=== PATIENT | female | born 1960 | race Caucasian/White ===

== ENCOUNTER 2018-12-09 00:42 | Emergency (ER) | payer OTHER ==
[~2018-12-09] VITALS: Ht 167.6 cm; Wt 65.8 kg
[~2018-12-09 00:42] MED LIST: ALBIPROI INH; ALBU90OI INH; ALBU90OI6 INH; ALBU90OI61 INH; AMOX500 PO; BUDE10.22 IH; CALCA500CH PO; CLIN150; COMBIVENT RESPIM4 GM IH; CYCL10 PO; Cleocin HCl300 MG PO; DIAZ5 PO; DIPH50 PO; ENDOCET PO; FLUSAL2505 IH; HYDACE5 PO; HYDACE7.5; Hydrocodone-Ap1 EA20 PO; INDO25 PO; LORA.5 PO; METH10 PO; METPRE4DP PO; Mucinex600 MG PO; ONDA4ODT MM; OXYACE5T PO; OXYC10TA19 PO; OXYC15ER PO; PREG50 PO; Percocet 5-3251 EACH PO; Prednisone20 MG PO; RXONDA4ODT MM; TIOT18 IH; VICODIN HP 10-1 EACH PO; Ventolin Soln3 ML INH; Zithromax250 MG PO
[2018-12-09] MEDS ORDERED: LEVSOD50 PO (00:50)
[2018-12-09] MEDS ORDERED: AMIT10 PO ×2 (00:50→01:00)
== END 2018-12-09 01:42 | disposition home or self-care (01) ==
LOC: ER 00:42
DX: F41.9 Anxiety disorder, unspecified (principal); F31.9 Bipolar disorder, unspecified; F90.9 Attention-deficit hyperactivity disorder, unspecified type; F17.210 Nicotine dependence, cigarettes, uncomplicated; J44.9 Chronic obstructive pulmonary disease, unspecified; Z88.0 Allergy status to penicillin; Z88.1 Allergy status to other antibiotic agents; Z91.09 Other allergy status, other than to drugs and biological substances; Z79.899 Other long term (current) drug therapy
CPT/HCPCS: 99283

== ENCOUNTER 2019-01-29 21:31 | Emergency (ER) | payer OTHER ==
[~2019-01-29] VITALS: Ht 167.6 cm; Wt 61.2 kg
[~2019-01-29 21:31] MED LIST changes: +AMIT10 PO; +LEVSOD50 PO
[2019-01-30 00:10] LABS: Source, Urine Clean Catch
[2019-01-30 00:27] LABS: Blood, Urine 5+ (Neg); Glucose Qualitative, Urine Neg (Neg); Ketones, Urine 2+ (Neg); Leukocyte Esterase, Urine 3+ (Neg); Nitrite, Urine Pos (Neg); Protein, Urine 4+ (Neg); Urobilinogen, Urine 2+ (Normal)
[2019-01-30 00:29] LABS: Appearance, Urine Cloudy (Clear); Bilirubin, Urine 1+ (Neg); Color, Urine Amber (P-Yellow)
[2019-01-30 00:30] LABS: Amorphous Light (0-Heavy); Bacteria Many /hpf; Red Blood Cells, Urine TNTC /hpf (0-2); Squamous Epithelial Cells Rare /hpf (Few); Transitional Epithelial Cells Few /hpf (0-Rare); White Blood Cells, Urine TNTC /hpf (0-5)
[2019-01-30] MEDS ORDERED: CEPH500 PO (00:58)
[2019-01-30] MEDS ORDERED: IBUP600 PO (00:58)
[2019-01-30] MEDS ORDERED: Pyridium100 MG PO (00:58)
== END 2019-01-30 01:22 | disposition home or self-care (01) ==
LOC: ER 21:31
PROVIDERS: Emergency Medicine
DX: N30.90 Cystitis, unspecified without hematuria (principal); G43.909 Migraine, unspecified, not intractable, without status migrainosus; J44.9 Chronic obstructive pulmonary disease, unspecified; F31.9 Bipolar disorder, unspecified; F17.210 Nicotine dependence, cigarettes, uncomplicated; Z88.0 Allergy status to penicillin; Z88.2 Allergy status to sulfonamides; Z91.041 Radiographic dye allergy status; Z79.899 Other long term (current) drug therapy
CPT/HCPCS: 81001; 87077; 87086; 87186; 99284

== ENCOUNTER 2019-02-23 09:13 | Observation (INO) | payer OTHER ==
[~2019-02-23] VITALS: Ht 175.3 cm; Wt 72.6 kg
[~2019-02-23 09:13] MED LIST changes: +CEPH500 PO; +IBUP600 PO; +Pyridium100 MG PO
[2019-02-23 10:06] LABS: BASOPHILS ABSOLUTE AUTO 0.04 K/mm3 (0.00-0.23); BASOPHILS PERCENT AUTO 1 % (0-2); EOSINOPHILS ABSOLUTE AUTO 0.06 K/mm3 (0.00-0.68); EOSINOPHILS PERCENT AUTO 1 % (0-6); Hematocrit 46.7 % (33.0-51.0); Hemoglobin 15.2 g/dL (11.5-16.0); IMMATURE GRAN ABSOLUTE AUTO 0.01 K/mm3 (0.00-0.10); IMMATURE GRAN PERCENT AUTO 0 % (0-1); LYMPHOCYTES ABSOLUTE AUTO 1.54 K/mm3 (0.84-5.20); LYMPHOCYTES PERCENT AUTO 23 % (21-46); MONOCYTES PERCENT AUTO 9 % (4-13); Mean Corpuscular HGB 28.4 pg (26.0-34.0); Mean Corpuscular HGB Conc 32.5 g/dL (31.5-36.5); Mean Corpuscular Volume 87 fL (80-100); Mean Platelet Volume 9.2 fL (9.1-12.4); NEUTROPHILS ABSOLUTE AUTO 4.38 K/mm3 (1.96-9.15); NEUTROPHILS PERCENT AUTO 66 % (41-73); Platelet Count 290 K/mm3 (150-400); RDW Coefficient Variation 12.4 % (11.7-14.2); RDW Standard Deviation 39.4 fL (35.1-46.3); Red Blood Cell Count 5.36 M/mm3 (3.80-5.20); White Blood Cell Count 6.63 K/mm3 (4.00-11.30)
[2019-02-23 10:13] LABS: Source, Urine Clean Catch
[2019-02-23 10:16] LABS: Blood, Urine 4+ (Neg); Glucose Qualitative, Urine Neg (Neg); Ketones, Urine 4+ (Neg); Leukocyte Esterase, Urine 1+ (Neg); Nitrite, Urine Neg (Neg); Protein, Urine 3+ (Neg); Specific Gravity, Urine 1.025 (1.003-1.022); Urobilinogen, Urine 2+ (Normal)
[2019-02-23 10:28] LABS: Alanine Aminotransfer (ALT/SGP 28 U/L (12-78); Albumin/Globulin Ratio 0.9 (0.8-1.8); Alk Phos 93 U/L (50-136); Anion Gap 12 mmol/L (6-16); Aspartate Aminotrans (AST/SGOT 32 U/L (12-37); Bilirubin, Total 0.7 mg/dL (0.1-1.0); Blood Urea Nitrogen 18 mg/dL (8-24); Bun/Creatinine Ratio 27.4 (12.0-20.0); CO2, Blood 26 mmol/L (21-32); Calcium, Blood 10.9 mg/dL (8.5-10.1); Chloride, Blood 100 mmol/L (98-108); Creatinine, Blood 0.66 mg/dL (0.40-1.00); Globulin, Blood 4.5 g/dL (2.2-4.0); Glomerular Filtration Rate >60 (60-); Glucose, Blood 87 mg/dL (70-99); Potassium, Blood 3.3 mmol/L (3.5-5.5); Sodium, Blood 138 mmol/L (136-145); Total Protein, Blood 8.5 g/dL (6.4-8.2)
[2019-02-23 10:35] LABS: Appearance, Urine Hazy (Clear); Bilirubin, Urine 2+ (Neg); Color, Urine Yellow (P-Yellow)
[2019-02-23 10:36] LABS: Bacteria Few /hpf; Mucus Light (0-Heavy); Squamous Epithelial Cells Few /hpf (Few)
--- NOTE | 2019-02-23 15:00 | NUR ---
PT ARRIVED TO ROOM 334 FROM ER VIA W/C. PT STOOD AND TRANSFERRED SELF TO THE BED. PT IS INDEPENDENT WITH ADL'S IN THE ROOM. ORIENTED TO ROOM AND CALL SYSTEM. CALL NAVARRETE IN REACH, WILL MONITOR
[2019-02-23 15:07] LABS: U Amphetamine Screen DETECTED; U Barbituate Screen Not Detected; U Benzodiazapine Screen Not Detected; U Buprenorphine Screen Not Detected; U Cannabinoids Screen DETECTED; U Cocaine Screen Not Detected; U Methadone Screen Not Detected; U Methamphetamine Screen DETECTED; U Opiates Screen DETECTED; U Oxycodone Screen Not Detected; U Phencyclidine Screen Not Detected; U Propoxyphene Screen Not Detected
--- NOTE | 2019-02-23 16:30 | NUR ---
PT MOVING AROUND ROOM AND ON BED, SAYS SHE CAN'T KEEP STILL AND STOP MOVING. DR PATTON CALLED, ORDERS FOR MELATONIN 6 MG PO AT BEDTIME ONLY RECEIVED. PT ASSISTED INTO SHOWER SHE BELIEVES THAT WILL HELP.
--- NOTE | 2019-02-23 17:31 | NUR ---
NO ACUTE CHANGES NOTED SINCE PT ARRIVAL TO ROOM 334. PT RESTING QUIETLY IN BED AFTER HOT SHOWER. WILL CONTINUE TO MONITOR AND REPORT TO ONCOMING RN
--- NOTE | 2019-02-24 03:40 | NUR ---
SHIFT SUMMARY PT ADMITTED FOR ACUTE UTI. URINE DRUG TOX SCREEN POSITIVE FOR OPIATES, AMPHETAMINE, METH, AND CANNABINOIDS. FULL CODE. CARDIAC DIET. PT TO HAVE ECHO TODAY. LOVENOX FOR DVT PROPHYLAXIS. NS IS RUNNING AT 150 MLS/HR X2 BAGS AND IS ON SECOND BAG AT THIS TIME. PT IS INDEPENDENT IN ROOM. 20G IV TO R FA. TAKES MEDICATIONS WHOLE WITH WATER. THE PT IS APPARENTLY BIPOLAR AND OFF OF HER MEDICATIONS BUT FACE SHEET FAXED FOR PSYCH CONSULT. THE PT REPORTS HAVING A BURNING SENSATION TO HER SKIN. REQUESTED MEDICATION TO ASSIST WITH SLEEP AND MEDICATED PER EMAR. THE PT HAS BEEN ALERT AND ORIENTED X 3, PLEASENT AND COOPERATIVE WITH CARE. THE PT HAS APPEARED TO SLEEP COMFORTABLY MOST OF THE NIGHT WITH NO APPARENT SIGNS OF ACUTE DISTRESS. ABLE TO MAKE NEEDS KNOWN AND CALL LIGHT IN REACH.
[2019-02-24 05:28] LABS: BASOPHILS ABSOLUTE AUTO 0.02 K/mm3 (0.00-0.23); BASOPHILS PERCENT AUTO 1 % (0-2); EOSINOPHILS PERCENT AUTO 3 % (0-6); Hematocrit 36.6 % (33.0-51.0); IMMATURE GRAN ABSOLUTE AUTO 0.01 K/mm3 (0.00-0.10); IMMATURE GRAN PERCENT AUTO 0 % (0-1); LYMPHOCYTES PERCENT AUTO 32 % (21-46); MONOCYTES ABSOLUTE AUTO 0.51 K/mm3 (0.16-1.47); MONOCYTES PERCENT AUTO 13 % (4-13); Mean Corpuscular HGB Conc 32.8 g/dL (31.5-36.5); Mean Corpuscular Volume 88 fL (80-100); Mean Platelet Volume 9.1 fL (9.1-12.4); NEUTROPHILS ABSOLUTE AUTO 1.96 K/mm3 (1.96-9.15); NEUTROPHILS PERCENT AUTO 52 % (41-73); Platelet Count 187 K/mm3 (150-400); RDW Coefficient Variation 12.4 % (11.7-14.2); RDW Standard Deviation 40.2 fL (35.1-46.3); Red Blood Cell Count 4.14 M/mm3 (3.80-5.20)
[2019-02-24 06:54] LABS: Anion Gap 9 mmol/L (6-16); Blood Urea Nitrogen 10 mg/dL (8-24); Bun/Creatinine Ratio 18.5 (12.0-20.0); CO2, Blood 26 mmol/L (21-32); Calcium, Blood 8.3 mg/dL (8.5-10.1); Chloride, Blood 107 mmol/L (98-108); Creatinine, Blood 0.54 mg/dL (0.40-1.00); Glomerular Filtration Rate >60 (60-); Glucose, Blood 85 mg/dL (70-99); Potassium, Blood 3.2 mmol/L (3.5-5.5); Sodium, Blood 142 mmol/L (136-145)
[2019-02-24] MEDS ORDERED: LEVFLO500 PO (13:04)
--- NOTE | 2019-02-24 15:40 | NUR ---
DISCHARGE INSTRUCTIONS COMPLETED AND DISCUSSED WITH PT EXPRESSING UNDERSTANDING. SCRIPT FAXED TO [facility] IN [place]. MADE TRANSPORTATIONS ARRANGEMENTS WITH [facility] FOR FOLLOW UP APPT. WITH TYLER MALHOTRA ON FRIDAY. PT HAD ALREADY LEFT SO CALLED HER HOME AND LEFT A MESSAGE FOR HER PER HER REQUEST.
== END 2019-02-24 15:27 | disposition home or self-care (01) ==
LOC: ER 09:13 → MEDS 09:14 → ENPENDDIS 02-24 10:00 → MEDS 02-24 15:27
PROVIDERS: Emergency Medicine; ADMIT Hospitalist
DX: R00.0 Tachycardia, unspecified (principal); N39.0 Urinary tract infection, site not specified; F31.9 Bipolar disorder, unspecified; F11.10 Opioid abuse, uncomplicated; F17.200 Nicotine dependence, unspecified, uncomplicated; Z91.041 Radiographic dye allergy status; Z88.0 Allergy status to penicillin; Z88.2 Allergy status to sulfonamides; Z79.899 Other long term (current) drug therapy
CPT/HCPCS: 36415; 80048; 80053; 81001; 83605; 83690; 84443; 85025; 87086; 93306; 96361; 96365; 96367; 96375; 99285-25; J0696; J0780; J1200; J1650; J1956; J2405; J7030

== ENCOUNTER 2019-12-18 12:14 | Inpatient (IN) | payer OTHER ==
[~2019-12-18] VITALS: Ht 170.2 cm; Wt 56.9 kg
[~2019-12-18 12:14] MED LIST changes: -ALBU3IS; -ALBU90OI; -COMBIVENT RESPIM4 GM
[2019-12-18] MEDS ORDERED: COMBIVENT RESPIM4 GM (12:32)
[2019-12-18] MEDS ORDERED: ALBU3IS (12:33)
[2019-12-18] MEDS ORDERED: ALBU90OI (12:33)
[2019-12-18 12:45] LABS: Source, Urine Clean Catch
[2019-12-18 12:50] LABS: BASOPHILS ABSOLUTE AUTO 0.03 K/mm3 (0.00-0.23); BASOPHILS PERCENT AUTO 1 % (0-2); EOSINOPHILS ABSOLUTE AUTO 0.03 K/mm3 (0.00-0.68); EOSINOPHILS PERCENT AUTO 1 % (0-6); Hematocrit 43.5 % (33.0-51.0); Hemoglobin 12.8 g/dL (11.5-16.0); IMMATURE GRAN ABSOLUTE AUTO 0.01 K/mm3 (0.00-0.10); IMMATURE GRAN PERCENT AUTO 0 % (0-1); LYMPHOCYTES ABSOLUTE AUTO 1.36 K/mm3 (0.84-5.20); LYMPHOCYTES PERCENT AUTO 28 % (21-46); MONOCYTES ABSOLUTE AUTO 0.58 K/mm3 (0.16-1.47); MONOCYTES PERCENT AUTO 12 % (4-13); Mean Corpuscular HGB 26.1 pg (26.0-34.0); Mean Corpuscular HGB Conc 29.4 g/dL (31.5-36.5); Mean Corpuscular Volume 89 fL (80-100); Mean Platelet Volume 9.7 fL (9.1-12.4); NEUTROPHILS ABSOLUTE AUTO 2.92 K/mm3 (1.96-9.15); NEUTROPHILS PERCENT AUTO 59 % (41-73); Platelet Count 211 K/mm3 (150-400); RDW Coefficient Variation 14.5 % (11.7-14.2); RDW Standard Deviation 46.5 fL (35.1-46.3); Red Blood Cell Count 4.91 M/mm3 (3.80-5.20); White Blood Cell Count 4.93 K/mm3 (4.00-11.30)
[2019-12-18 12:51] LABS: Bilirubin, Urine Neg (Neg); Blood, Urine Neg (Neg); Glucose Qualitative, Urine Neg (Neg); Ketones, Urine Neg (Neg); Leukocyte Esterase, Urine Neg (Neg); Nitrite, Urine Neg (Neg); Protein, Urine Neg (Neg); Urobilinogen, Urine NORM (Normal)
[2019-12-18 12:56] LABS: Appearance, Urine Clear (Clear); Color, Urine Yellow (P-Yellow)
[2019-12-18 13:02] LABS: U Amphetamine Screen Not Detected; U Barbituate Screen Not Detected; U Benzodiazapine Screen Not Detected; U Buprenorphine Screen Not Detected; U Cannabinoids Screen Not Detected; U Cocaine Screen Not Detected; U Methadone Screen Not Detected; U Methamphetamine Screen Not Detected; U Opiates Screen Not Detected; U Oxycodone Screen Not Detected; U Phencyclidine Screen Not Detected; U Propoxyphene Screen Not Detected
[2019-12-18 13:05] LABS: International Normalized Ratio 1.06; Prothrombin Time Results 11.3 Sec (9.7-11.5)
[2019-12-18 13:10] LABS: Alanine Aminotransfer (ALT/SGP 40 U/L (12-78); Albumin, Blood 2.8 g/dL (3.4-5.0); Albumin/Globulin Ratio 0.8 (0.8-1.8); Alk Phos 127 U/L (50-136); Anion Gap 1 mmol/L (6-16); Aspartate Aminotrans (AST/SGOT 34 U/L (12-37); Bilirubin, Total 0.3 mg/dL (0.1-1.0); Blood Urea Nitrogen 19 mg/dL (8-24); Bun/Creatinine Ratio 30.9 (12.0-20.0); CO2, Blood 34 mmol/L (21-32); Calcium, Blood 8.9 mg/dL (8.5-10.1); Chloride, Blood 104 mmol/L (98-108); Creatinine, Blood 0.62 mg/dL (0.40-1.00); Globulin, Blood 3.6 g/dL (2.2-4.0); Glomerular Filtration Rate >60 (60-); Glucose, Blood 86 mg/dL (70-99); Potassium, Blood 4.4 mmol/L (3.5-5.5); Sodium, Blood 139 mmol/L (136-145); Total Protein, Blood 6.4 g/dL (6.4-8.2); Troponin I <0.015 ng/mL (0.000-0.040)
--- NOTE | 2019-12-18 15:45 | NUR ---
PATIENT CARE ASSUMED.
--- NOTE | 2019-12-18 16:32 | NUR ---
Echocardiogram completed.
[2019-12-18 18:26] LABS: International Normalized Ratio 1.03
--- NOTE | 2019-12-18 18:30 | NUR ---
PATIENT TAKEN TO CAROTID IMAGING TEST.
--- NOTE | 2019-12-18 19:06 | NUR ---
PATIENT GONE FOR THORACENTESIS AND THEN TO GO FOR ANGIO TONIGHT. PATIENT NPO FOR POTENTIAL ADDITIONAL PROCEDURES IN AM.
[2019-12-18 20:38] LABS: Automated BF RBC Count 0.025 M/mm3 (0-0); Automated BF WBC Count 1.184 K/mm3 (0-999); Body Fluid WBC Count 1184 /mm3 (0-999); RBC Count, Body Fluid 25000 /mm3 (0-0)
--- NOTE | 2019-12-18 20:45 | NUR ---
CARE ASSUMED CARE ASSUMED FROM SANTHOSH ROSE AT 2030. PT TRANSPORTED TO ROUTE SALES DELIVERY DRIVER AT THIS TIME BY RN. A/O X 3. DISPLAYS UNDERSTANDING OF PLAN. WILL ASSESS WHEN RETURNS FROM ROUTE SALES DELIVERY DRIVER. IV SALINE LOCKED AND HEPARIN GTT STOPPED.
[2019-12-18 20:56] LABS: Lactate Dehydrogenase, Body Fl 75 U/L; Protein, Body Fluid 1.5 g/dL
[2019-12-18 21:10] LABS: Total Cell Count, Body Fluid 100
[2019-12-18 21:13] LABS: Appearance, Body Fluid Cloudy (Clear); Color, Body Fluid Amber (None-Yellow)
--- NOTE | 2019-12-18 22:24 | NUR ---
ARRIVAL FROM INDUSTRIAL AERIAL INSTALLER 2144 - PT ARRIVES FROM INDUSTRIAL AERIAL INSTALLER TO PCU. SHE IS A/O X3, CALM, COOPERATIVE AND APPROPRIATE. PAIN CONTROLLED AT THIS TIME. TR BAND SECURED ON R WRIST; INFLATED. PT REPORTS ADEQUATE SENSATION IN HER R HAND; SKIN IS PINK AND FLUSHED. R RADIAL PULSES PALPABLE. R ARM SECURED IN ARM BOARD. PT EDUCATED ON LIMITED USE OF R ARM. AMBULATED TO BATHROOM INDEPENDENTLY; VOIDED 600 ML. VSS. LUNG SOUNDS CLEAR. NSR, HR 90S. NS 500 ML INFUSING PER ORDER. WILL CONTINUE TO MONITOR.
--- NOTE | 2019-12-19 00:16 | NUR ---
REASSESSMENT PT SLEEPING DEEPLY BUT DOES AWAKEN TO STIMULATION. VSS. TR BAND DEFLATED BUT REMAINS ON WRIST. ARMBOARD SECURED. WILL MONITOR CLOSELY FOR BLEEDING AND OOZING. WILL CONTINUE TO MONITOR. IVF REMAINS INFUSING AT THIS TIME.
[2019-12-19 04:28] LABS: BASOPHILS ABSOLUTE AUTO 0.01 K/mm3 (0.00-0.23); BASOPHILS PERCENT AUTO 0 % (0-2); EOSINOPHILS PERCENT AUTO 0 % (0-6); Hematocrit 44.7 % (33.0-51.0); Hemoglobin 13.1 g/dL (11.5-16.0); IMMATURE GRAN ABSOLUTE AUTO 0.02 K/mm3 (0.00-0.10); IMMATURE GRAN PERCENT AUTO 0 % (0-1); LYMPHOCYTES ABSOLUTE AUTO 0.55 K/mm3 (0.84-5.20); LYMPHOCYTES PERCENT AUTO 9 % (21-46); MONOCYTES ABSOLUTE AUTO 0.19 K/mm3 (0.16-1.47); MONOCYTES PERCENT AUTO 3 % (4-13); Mean Corpuscular HGB Conc 29.3 g/dL (31.5-36.5); Mean Corpuscular Volume 89 fL (80-100); Mean Platelet Volume 9.6 fL (9.1-12.4); NEUTROPHILS ABSOLUTE AUTO 5.63 K/mm3 (1.96-9.15); NEUTROPHILS PERCENT AUTO 88 % (41-73); Platelet Count 197 K/mm3 (150-400); RDW Coefficient Variation 14.4 % (11.7-14.2); RDW Standard Deviation 46.9 fL (35.1-46.3); Red Blood Cell Count 5.03 M/mm3 (3.80-5.20)
[2019-12-19 04:47] LABS: Anion Gap 4 mmol/L (6-16); Blood Urea Nitrogen 20 mg/dL (8-24); CHOL/HDL RATIO 1.9; CO2, Blood 31 mmol/L (21-32); Calcium, Blood 8.8 mg/dL (8.5-10.1); Chloride, Blood 106 mmol/L (98-108); Cholesterol 148 mg/dL (50-200); Creatinine, Blood 0.67 mg/dL (0.40-1.00); Glomerular Filtration Rate >60 (60-); Glucose, Blood 129 mg/dL (70-99); HDL Cholesterol 78 mg/dL (>39); LDL/HDL RATIO 0.7; Low Density Lipoprotein Chol 56 mg/dL (0-110); Potassium, Blood 4.2 mmol/L (3.5-5.5); Sodium, Blood 141 mmol/L (136-145); Triglycerides 72 mg/dL (30-160); Very Low Density Lipoprot Chol 14 mg/dL (6-32)
--- NOTE | 2019-12-19 06:07 | NUR ---
SHIFT SUMMARY PT TAKEN TO RADIO STATION OPERATOR FOR ANGIOGRAM. NO INTERVENTIONS IN RADIO STATION OPERATOR. PT ARRIVED BACK IN PCU WITH TR BAND SECURED ON R WRIST AT 2145. TR BAND REMOVED AT 0100; CLOTH DOT DRESSING APPLIED, AND ARM SECURED IN ARMBOARD. PT TURNED HERSELF IN BED AND SLEPT SINCE ARRIVAL FROM RADIO STATION OPERATOR. VSS DURING SHIFT. NO SIGNS OF BLEEDING FROM R WRIST. PT ALSO RECEIVED THORACENTESIS AT START OF SHIFT AND NOW HAS IMPROVED BREATHING. WILL GIVE BEDSIDE, HANDOFF REPORT TO DAY RN.
--- NOTE | 2019-12-19 08:00 | NUR ---
ASSUMED CARE PT ALERT AND ORIENTED. VS STABLE. HR NSR TO SINUS TACH. BP STABLE. RIGHT RADIAL SITE WITH ARM BOARD IN PLACE WITH NO SIGNS OF BLEEDING, BRUISING, OR HEMATOMA NOTED. DR. RODRIGUEZ IN WITH PLANS FOR COBRA TRANSFER TODAY. AWAITING ACCEPTING PHYSICIAN AT THIS TIME. PT UPDATED ON PLAN OF CARE. WILL CONTINUE TO MONITOR CLOSELY.
--- NOTE | 2019-12-19 15:41 | NUR ---
UPDATE VS STABLE. SOFTBALL COACH WITH BED AVAILABLE AND ACCEPTING PHYSICIAN. COBRA PACKET HAS BEEN PUT TOGETHER AND PT AWARE OF PLAN. TRANSPORT CALLED AND WILL BE IN WITHIN 15 MIN.
== END 2019-12-19 15:56 | disposition short-term general hospital (02) | DRG 287 ==
LOC: ER 12:14 → PCU 14:05
PROVIDERS: Emergency Medicine; ADMIT Internal Medicine
PROC: B211YZZ Fluoroscopy of Multiple Coronary Arteries using Other Contrast (ICD-10-PCS; principal; 2019-12-18)
PROC: 0W9B3ZZ Drainage of Left Pleural Cavity, Percutaneous Approach (ICD-10-PCS; 2019-12-18)
DX: I50.43 Acute on chronic combined systolic (congestive) and diastolic (congestive) heart failure (principal); I48.92 Unspecified atrial flutter; R64 Cachexia; J90 Pleural effusion, not elsewhere classified; C81.90 Hodgkin lymphoma, unspecified, unspecified site; I35.0 Nonrheumatic aortic (valve) stenosis; E03.9 Hypothyroidism, unspecified; J44.9 Chronic obstructive pulmonary disease, unspecified; F31.9 Bipolar disorder, unspecified; F43.10 Post-traumatic stress disorder, unspecified; Z87.891 Personal history of nicotine dependence; Z88.0 Allergy status to penicillin; Z88.2 Allergy status to sulfonamides; Z88.8 Allergy status to other drugs, medicaments and biological substances
CPT/HCPCS: 32555; 36415; 71045; 71046; 80048; 80053; 80061; 81003; 83615; 83880; 84157; 84439; 84443; 84484; 85025; 85610; 85730; 89051; 90686; 93005; 93010; 93306; 93308; 93454; 93880; 94640; 94760; 94762; 96374; 96375; 99152; 99153; 99285-25; C1769; C1894; G0008; J1200; J1644; J1720; J1940; J2250; J3010; J7030; J7040; J7512; Q9967

== ENCOUNTER → 2019-12-18 | Outpatient (CLI) | payer OTHER ==
[~2019-12-18] MED LIST changes: +ALBU3IS; +ALBU90OI; +COMBIVENT RESPIM4 GM; +LEVFLO500 PO
[2019-12-18 12:27] LABS: BASOPHILS ABSOLUTE AUTO 0.04 K/mm3 (0.00-0.23); BASOPHILS PERCENT AUTO 1 % (0-2); EOSINOPHILS ABSOLUTE AUTO 0.03 K/mm3 (0.00-0.68); EOSINOPHILS PERCENT AUTO 1 % (0-6); Hematocrit 42.5 % (33.0-51.0); Hemoglobin 12.7 g/dL (11.5-16.0); IMMATURE GRAN PERCENT AUTO 0 % (0-1); LYMPHOCYTES ABSOLUTE AUTO 1.08 K/mm3 (0.84-5.20); LYMPHOCYTES PERCENT AUTO 25 % (21-46); MONOCYTES ABSOLUTE AUTO 0.47 K/mm3 (0.16-1.47); MONOCYTES PERCENT AUTO 11 % (4-13); Mean Corpuscular HGB 26.1 pg (26.0-34.0); Mean Corpuscular HGB Conc 29.9 g/dL (31.5-36.5); Mean Corpuscular Volume 87 fL (80-100); Mean Platelet Volume 10.4 fL (9.1-12.4); NEUTROPHILS PERCENT AUTO 63 % (41-73); Platelet Count 218 K/mm3 (150-400); RDW Coefficient Variation 14.7 % (11.7-14.2); RDW Standard Deviation 46.9 fL (35.1-46.3); Red Blood Cell Count 4.87 M/mm3 (3.80-5.20); White Blood Cell Count 4.32 K/mm3 (4.00-11.30)
[2019-12-18 12:34] LABS: Alanine Aminotransfer (ALT/SGP 38 U/L (12-78); Albumin, Blood 2.9 g/dL (3.4-5.0); Albumin/Globulin Ratio 0.8 (0.8-1.8); Alk Phos 130 U/L (40-126); Anion Gap 6 mmol/L (6-16); Aspartate Aminotrans (AST/SGOT 37 U/L (12-37); Bilirubin, Total 0.3 mg/dL (0.1-1.0); Blood Urea Nitrogen 19 mg/dL (8-24); Bun/Creatinine Ratio 29.7 (12.0-20.0); CO2, Blood 31 mmol/L (21-32); Calcium, Blood 8.9 mg/dL (8.5-10.1); Chloride, Blood 103 mmol/L (98-108); Creatinine, Blood 0.64 mg/dL (0.40-1.00); Globulin, Blood 3.5 g/dL (2.2-4.0); Glomerular Filtration Rate >60 (60-); Glucose, Blood 86 mg/dL (70-99); Potassium, Blood 4.6 mmol/L (3.5-5.5); Sodium, Blood 140 mmol/L (136-145); Total Protein, Blood 6.4 g/dL (6.4-8.2)
== END | disposition home or self-care (01) ==
LOC: LAB EV 12:17 → LAB SHORT 12:17
PROVIDERS: Physician Assistant
DX: I50.9 Heart failure, unspecified (principal)
CPT/HCPCS: 80053; 83880; 84484; 85025

== ENCOUNTER 2023-01-20 20:29 | Emergency (ER) | payer OTHER ==
[~2023-01-20] VITALS: Ht 167.6 cm; Wt 54.4 kg
[~2023-01-20 20:29] MED LIST changes: +ALBU3IS; +ALBU90OI; +COMBIVENT RESPIM4 GM
[2023-01-20] MEDS ORDERED: Cleocin HCl150 MG PO (23:48)
== END 2023-01-21 | disposition home or self-care (01) ==
LOC: ER 20:29
DX: R68.84 Jaw pain (principal); Z88.0 Allergy status to penicillin; Z88.2 Allergy status to sulfonamides; Z88.8 Allergy status to other drugs, medicaments and biological substances; Z79.899 Other long term (current) drug therapy; G43.909 Migraine, unspecified, not intractable, without status migrainosus; J44.9 Chronic obstructive pulmonary disease, unspecified; F43.10 Post-traumatic stress disorder, unspecified; Z87.891 Personal history of nicotine dependence
CPT/HCPCS: 99283; A9270

== ENCOUNTER 2023-11-28 14:30 | Emergency (ER) | payer OTHER ==
[~2023-11-28] VITALS: Ht 175.3 cm; Wt 56.7 kg
[~2023-11-28 14:30] MED LIST changes: +Cleocin HCl150 MG PO
[2023-11-28 15:14] LABS: BASOPHILS ABSOLUTE AUTO 0.03 K/mm3 (0.00-0.23); BASOPHILS PERCENT AUTO 1 % (0-2); EOSINOPHILS ABSOLUTE AUTO 0.11 K/mm3 (0.00-0.68); EOSINOPHILS PERCENT AUTO 2 % (0-6); Hematocrit 38.9 % (33.0-51.0); Hemoglobin 12.7 g/dL (11.5-16.0); IMMATURE GRAN ABSOLUTE AUTO 0.01 K/mm3 (0.00-0.10); IMMATURE GRAN PERCENT AUTO 0 % (0-1); LYMPHOCYTES ABSOLUTE AUTO 1.39 K/mm3 (0.84-5.20); LYMPHOCYTES PERCENT AUTO 27 % (21-46); MONOCYTES ABSOLUTE AUTO 0.61 K/mm3 (0.16-1.47); MONOCYTES PERCENT AUTO 12 % (4-13); Mean Corpuscular HGB 29.5 pg (26.0-34.0); Mean Corpuscular HGB Conc 32.6 g/dL (31.5-36.5); Mean Corpuscular Volume 90 fL (80-100); Mean Platelet Volume 9.1 fL (9.1-12.4); NEUTROPHILS ABSOLUTE AUTO 2.94 K/mm3 (1.96-9.15); NEUTROPHILS PERCENT AUTO 58 % (41-73); Platelet Count 188 K/mm3 (150-400); RDW Coefficient Variation 12.1 % (11.7-14.2); Red Blood Cell Count 4.31 M/mm3 (3.80-5.20); White Blood Cell Count 5.09 K/mm3 (4.00-11.30)
[2023-11-28 15:52] LABS: Albumin, Blood 3.2 g/dL (3.4-5.0); Albumin/Globulin Ratio 0.9 (0.8-1.8); Bilirubin, Total 0.3 mg/dL (0.1-1.0); Bun/Creatinine Ratio 30.3 (12.0-20.0); Calcium, Blood 9.6 mg/dL (8.5-10.1); Creatinine, Blood 0.63 mg/dL (0.40-1.00); Globulin, Blood 3.6 g/dL (2.2-4.0); Potassium, Blood 4.2 mmol/L (3.5-5.5); Total Protein, Blood 6.8 g/dL (6.4-8.2)
[2023-11-28 19:00] VITALS: BP 159/94
== END 2023-11-28 19:43 | disposition home or self-care (01) ==
LOC: ER 14:30
PROVIDERS: Student in an Organized Health Care Education/Training Program
DX: R07.2 Precordial pain (principal); Z88.0 Allergy status to penicillin; Z88.2 Allergy status to sulfonamides; Z91.048 Other nonmedicinal substance allergy status; Z79.2 Long term (current) use of antibiotics; Z79.899 Other long term (current) drug therapy; G43.909 Migraine, unspecified, not intractable, without status migrainosus; J44.9 Chronic obstructive pulmonary disease, unspecified; Z87.891 Personal history of nicotine dependence
CPT/HCPCS: 71046; 71275; 80053; 83690; 84484; 85025; 93005; 93010; 96365; 96375; 99285-25; J1885; J3010; Q9967

== ENCOUNTER 2025-06-08 14:55 | Observation (INO) | payer OTHER ==
[~2025-06-08] VITALS: Ht 167.6 cm; Wt 56.7 kg
[2025-06-08] MEDS ORDERED: Albuterol 2.5 MG/3 ML VIAL INH SCH ×2 (15:25→17:40)
[2025-06-08 16:08] LABS: BASOPHILS ABSOLUTE AUTO 0.03 K/mm3 (0.00-0.23); BASOPHILS PERCENT AUTO 1 % (0-2); EOSINOPHILS ABSOLUTE AUTO 0.08 K/mm3 (0.00-0.68); EOSINOPHILS PERCENT AUTO 2 % (0-6); Hematocrit 39.5 % (33.0-51.0); Hemoglobin 12.6 g/dL (11.5-16.0); IMMATURE GRAN ABSOLUTE AUTO 0.01 K/mm3 (0.00-0.10); IMMATURE GRAN PERCENT AUTO 0 % (0-1); LYMPHOCYTES ABSOLUTE AUTO 1.30 K/mm3 (0.84-5.20); LYMPHOCYTES PERCENT AUTO 28 % (21-46); MONOCYTES ABSOLUTE AUTO 0.58 K/mm3 (0.16-1.47); MONOCYTES PERCENT AUTO 12 % (4-13); Mean Corpuscular HGB Conc 31.9 g/dL (31.5-36.5); Mean Corpuscular Volume 92 fL (80-100); NEUTROPHILS ABSOLUTE AUTO 2.71 K/mm3 (1.96-9.15); NEUTROPHILS PERCENT AUTO 58 % (41-73); NRBC ABSOLUTE 0.00 K/mm3 (0.00-0.02); NRBC Auto 0.0 /100 WBC (0.0-0.2); Platelet Count 182 K/mm3 (150-400); RDW Coefficient Variation 12.5 % (11.7-14.2); RDW Standard Deviation 42.0 fL (35.1-46.3)
[2025-06-08 16:12] LABS: pH Blood Venous 7.36 (7.34-7.37)
[2025-06-08 16:40] LABS: Alanine Aminotransfer (ALT/SGP 27.0 U/L (12-78); Albumin, Blood 3.3 g/dL (3.4-5.0); Albumin/Globulin Ratio 0.9 (0.8-1.8); Anion Gap 6.0 mmol/L (3-11); Aspartate Aminotrans (AST/SGOT 28.0 U/L (12-37); Bilirubin, Total 0.8 mg/dL (0.1-1.0); Blood Urea Nitrogen 16.0 mg/dL (8-24); CO2, Blood 31.0 mmol/L (21-32); Calcium, Blood 9.4 mg/dL (8.5-10.1); Chloride, Blood 103.0 mmol/L (98-108); Creatinine, Blood 0.74 mg/dL (0.40-1.00); Globulin, Blood 3.5 g/dL (2.2-4.0); Glucose, Blood 113.0 mg/dL (70-99); Potassium, Blood 3.9 mmol/L (3.5-5.5); Sodium, Blood 136.0 mmol/L (136-145); Total Protein, Blood 6.8 g/dL (6.4-8.2)
[2025-06-08] MEDS ORDERED: NS 1,000 ML IV SCH ×2 (20:45→23:00)
[2025-06-08 23:45] VITALS: BP 144/71
--- NOTE | 2025-06-08 23:50 | NUR ---
Arrival to unit Patient arrived to unit without tele. AOx4. Self transferred from [facility] to bed, mild dizziness. Received a T.O. from Dr. Abdirashid Vasquez to initiate telemetry monitoring. Notified Mary Berg, Cloth Piecer, to order telemetry. Settled to bed. Call light near.
--- NOTE | 2025-06-08 23:50 | NUR ---
TELEMETRY Patient is here for new onset CHF and having dizziness. Called to inquire about telemetry monitoring. Received T.O. to place tele. Order entered and Commutator Assembler Mary Berg notified or tele order.
[2025-06-09 00:11] LABS: U Amphetamine Screen DETECTED; U Barbituate Screen Not Detected; U Benzodiazapine Screen Not Detected; U Buprenorphine Screen Not Detected; U Cannabinoids Screen DETECTED; U Cocaine Screen Not Detected; U Methadone Screen Not Detected; U Methamphetamine Screen DETECTED; U Opiates Screen Not Detected; U Oxycodone Screen DETECTED; U Phencyclidine Screen Not Detected
[2025-06-09 03:39] VITALS: BP 137/80
[2025-06-09 04:42] LABS: BASOPHILS ABSOLUTE AUTO 0.02 K/mm3 (0.00-0.23); BASOPHILS PERCENT AUTO 1 % (0-2); EOSINOPHILS ABSOLUTE AUTO 0.06 K/mm3 (0.00-0.68); EOSINOPHILS PERCENT AUTO 1 % (0-6); Hematocrit 37.7 % (33.0-51.0); Hemoglobin 12.1 g/dL (11.5-16.0); IMMATURE GRAN ABSOLUTE AUTO 0.01 K/mm3 (0.00-0.10); IMMATURE GRAN PERCENT AUTO 0 % (0-1); LYMPHOCYTES ABSOLUTE AUTO 1.07 K/mm3 (0.84-5.20); LYMPHOCYTES PERCENT AUTO 26 % (21-46); MONOCYTES ABSOLUTE AUTO 0.47 K/mm3 (0.16-1.47); MONOCYTES PERCENT AUTO 11 % (4-13); Mean Corpuscular HGB Conc 32.1 g/dL (31.5-36.5); Mean Corpuscular Volume 92 fL (80-100); NEUTROPHILS ABSOLUTE AUTO 2.51 K/mm3 (1.96-9.15); NEUTROPHILS PERCENT AUTO 61 % (41-73); NRBC ABSOLUTE 0.00 K/mm3 (0.00-0.02); NRBC Auto 0.0 /100 WBC (0.0-0.2); Platelet Count 156 K/mm3 (150-400); RDW Coefficient Variation 12.7 % (11.7-14.2); RDW Standard Deviation 43.1 fL (35.1-46.3)
[2025-06-09 05:16] LABS: Alanine Aminotransfer (ALT/SGP 22.0 U/L (12-78); Albumin, Blood 3.0 g/dL (3.4-5.0); Albumin/Globulin Ratio 0.9 (0.8-1.8); Anion Gap 6.0 mmol/L (3-11); Aspartate Aminotrans (AST/SGOT 19.0 U/L (12-37); Bilirubin, Total 0.6 mg/dL (0.1-1.0); Blood Urea Nitrogen 11.0 mg/dL (8-24); CO2, Blood 28.0 mmol/L (21-32); Calcium, Blood 8.6 mg/dL (8.5-10.1); Chloride, Blood 107.0 mmol/L (98-108); Creatinine, Blood 0.7 mg/dL (0.40-1.00); Globulin, Blood 3.3 g/dL (2.2-4.0); Glucose, Blood 109.0 mg/dL (70-99); Magnesium, Blood 1.8 mg/dL (1.6-2.4); Potassium, Blood 3.7 mmol/L (3.5-5.5); Sodium, Blood 137.0 mmol/L (136-145); Thyroid Stimulating Hormone 2.05 uIU/mL (0.360-4.800); Total Protein, Blood 6.3 g/dL (6.4-8.2)
--- NOTE | 2025-06-09 05:34 | NUR ---
Nebs and Atarax orders Patient woke up to be anxious. Current admission for new onset CHF. Lung sounds wheezy and with crackles. NS @ [address] Vasquez notified. Received orders for atarax 50 mg PO q6h prn for anxiety and to give nebs q4h prn for wheezing. EMAR updated.
[2025-06-09] MEDS ORDERED: Albuterol 2.5 MG/3 ML VIAL INH PRN (05:35)
--- NOTE | 2025-06-09 06:18 | NUR ---
Nebs and Atarax orders Patient woke up to be anxious. Current admission for COPD exac, dizziness. L/S were wheezy and with crackles. NS @ [address] Vasquez notified. Received orders for atarax 50 mg PO q6h prn for anxiety and to give nebs inhalation q4h prn for wheezing. EMAR updated.
[2025-06-09 07:20] VITALS: BP 155/80
--- NOTE | 2025-06-09 07:31 | NUR ---
Shift Summary AOx3-4. Anxious. Patient reports no PCP and she does not take any prescription meds at home. C/O generalized aches and pain, medicated w/ tylenol, somewhat effective. 1p SBA to BR. C/O mild dizziness when pt gets up abruptly. Also c/o urgency/frequency. Slept for only a portion of the night. Pt was requesting something to help her sleep but it was already 0530. Advised pt to discuss with Dr. Vasquez about a sleeping pill instead. Meds whole with water. Tele: SR [id number]. On RA.
[2025-06-09] MEDS ORDERED: LORazepam 2 MG/ML 1ML Injection IV ONE (11:15)
[2025-06-09 14:56] VITALS: BP 134/83
--- NOTE | 2025-06-09 18:27 | NUR ---
DAY SUMMARY A&OX3-4 W/FORGETFULNESS, CONTINUES TO C/O DIZZINESS W/AMBULATION, VSS, DDENIES PAIN, DAUGHTER AT BEDSIDE T/O MOST OF SHIFT, BEDRESTING AT THIS TIME, CALL LIGHT IN REACH, BED ALARM ACTIVE, WILL CONT TO MONITOR
[2025-06-09 19:20] VITALS: BP 133/84
[2025-06-10 00:31] VITALS: BP 146/81
[2025-06-10 04:47] VITALS: BP 147/87
--- NOTE | 2025-06-10 06:34 | NUR ---
Shift Summary AOx4. 1PA c gait belt and FWW to bathroom. Calling appropriately and waiting for help to arrive before heading to the bathroom. Tele: SR [id number]. Some dizziness still, but much improved. It seems patient has chronic back pain that she self medicates using oxycodone at home. Wondering if she may benefit from something other than tylenol for her chronic back pain such as tramadol or NSAIDS? DC plans are to SNF. Meds whole with water.
[2025-06-10] MEDS ORDERED: Tiotropium Bromide 2.5 MCG/ACT MIST INHAL (10 ACT/4 GM) INH SCH (07:30)
[2025-06-10 07:31] VITALS: BP 107/63
--- NOTE | 2025-06-10 10:49 | NUR ---
"Spiritual Care Attempted| Pt. Request On two occssions this ancillary services manager therapy attempted to visit the Pt. on 06/09 and 06/10. On both ocassions the pt. was somnolent and did not respond when I called her name. Will remain available to the Pt."
[2025-06-10 11:47] VITALS: BP 135/80
[2025-06-10 15:31] VITALS: BP 135/71
--- NOTE | 2025-06-10 16:43 | NUR ---
"Spiritual Care | Pt. request Pt. is awake in bed and welcomes my visit. Pt. is pleasant and a life review is facilitated. Pt. displayed evidence of trust and began to confide with this racking technician. Matters of charis and belief are considered, and matters of confession and forgiveness are considered. Pt. welcomed prayer. Prayed with Pt. and further pastoral school counsellor is given. With tears the Pt. verbalized gratitude for the spiritual care visit and prayer."
--- NOTE | 2025-06-10 18:17 | NUR ---
PATIENT ALERT AND COOPERATIVE WITH CARE TODAY. INDEPENDENT IN ROOM WITH SELF CARE. PATIENT HAD NO COMPLAINTS OR PAIN FOR MOST OF SHIFT. SLEPT OFF AND ON DURING THIS SHIFT. CALL LIGHT WITHIN REACH.
[2025-06-10 19:13] VITALS: BP 109/59
[2025-06-11] VITALS (7 sets, daily range): BP systolic 93–137; BP diastolic 43–70
--- NOTE | 2025-06-11 03:24 | NUR ---
SHIFT SUMMARY PATIENT APPEARS TO BE SLEEPING COMFORTABLY AT THIS TIME. VITAL SIGNS ARE STABLE. PATIENT HAS BEEN ORIENTED X4 AND HAS HER CALL LIGHT WITHIN REACH. NO COMPLAINTS OF CHEST PAIN. SAFETY PRECAUTIONS ARE BEING MAINTAINED.
--- NOTE | 2025-06-11 18:27 | NUR ---
SHIFT SUMMARY: PATIENT PLEASANT AND COOPERATIVE WITH NURSING PERSONEL AND TREATMENT. PATIENT HAD MRI TODAY AND AWAITING RESULTS. NO OTHER ACUTE CHANGES DURING THIS SHIFT. PLAN OF CARE ONGOING AT THIS TIME.
--- NOTE | 2025-06-12 04:23 | NUR ---
SHIFT SUMMARY PATIENT HAS APPEARED TO SLEEP COMFORTABLY THROUGHOUT THE NIGHT. SHE WAS BRADYCARDIC WHILE ASLEEP WITH HEART RATE IN THE HIGH 40'S. SOON SHE WOKE UP HEART RATE WOULD RETURN TO NORMAL. PATIENT WAS ASYMPTOMATIC. PATIENT IS ORIENTED X4 SHE HAS HER CALL LIGHT WITHIN REACH. SAFETY PRECAUTIONS ARE BEING MAINTAINED.
[2025-06-12 04:42] VITALS: BP 98/50
[2025-06-12 07:27] VITALS: BP 104/51
[2025-06-12 11:33] VITALS: BP 96/55
[2025-06-12 15:12] VITALS: BP 110/86
--- NOTE | 2025-06-12 18:41 | NUR ---
SHIFT SUMMARY: PLAN FOR POSSIBLE DISCHARGE TOMORROW TO SNF. NO ACUTE CHANGES DURING THIS SHIFT. WILL CONTINUE TO MONITOR.
[2025-06-12 19:57] VITALS: BP 94/61
--- NOTE | 2025-06-13 03:34 | NUR ---
SHIFT SUMMARY PATIENT HAS APPEARED TO SLEEP COMFORTABLY DURING THE NIGHT. SHE IS ORIENTED X4. SHE HAS HER CALL LIGHT WITHIN REACH. SHE HAS NOT HAD ANY COMPLAINTS. SAFETY PRECAUTIONS ARE BEING MAINTAINED.
[2025-06-13 04:48] VITALS: BP 88/60
[2025-06-13 04:51] VITALS: BP 95/63
[2025-06-13 07:13] VITALS: BP 113/53
[2025-06-13] MEDS ORDERED: METO50ER PO (12:53)
[2025-06-13] MEDS ORDERED: SPIRIVA RESPIMAT4 G3 INH (12:54)
--- NOTE | 2025-06-13 15:59 | NUR ---
DISCHARGE NOTE PT DISCHARGED TO HOME WITH [facility], PICKED UP BY HER SO. IV REMOVED. DISCHARGE EDUCATION AND INFORMATION REVIEWED WITH THE PT. MEDICATIONS FAXED TO THE PHARMACY OF HER CHOICE. PERSONAL BELONGINGS RETURNED.
== END 2025-06-13 15:50 | disposition home health service (06) ==
LOC: ER 14:55 → MEDS 14:56
PROVIDERS: Student in an Organized Health Care Education/Training Program; ADMIT Student in an Organized Health Care Education/Training Program
DX: I34.2 Nonrheumatic mitral (valve) stenosis (principal); J44.1 Chronic obstructive pulmonary disease with (acute) exacerbation; I50.30 Unspecified diastolic (congestive) heart failure; F15.10 Other stimulant abuse, uncomplicated; F31.9 Bipolar disorder, unspecified; Z87.891 Personal history of nicotine dependence; Z88.2 Allergy status to sulfonamides; Z88.0 Allergy status to penicillin; Z88.8 Allergy status to other drugs, medicaments and biological substances; Z79.899 Other long term (current) drug therapy; Z95.2 Presence of prosthetic heart valve
CPT/HCPCS: 70450; 70551; 71046; 80053; 82803; 83735; 83880; 84443; 84484; 85025; 93005; 93010; 93306; 94640; 94664; 94760; 94762; 96360; 96361; 97110; 97112; 97116; 97162; 97165; 97530; 97535; 99285-25; A9270; G0378; J7030